=== PATIENT | male | born 1990 | race American Indian/Alaskan Native ===

== ENCOUNTER 2021-07-20 22:27 | Emergency (ER) | payer OTHER ==
[~2021-07-20] VITALS: Ht 180.3 cm; Wt 79.4 kg
[2021-07-21] MEDS ORDERED: ZITHROMAX500 MG PO (03:43)
[2021-07-21] MEDS ORDERED: DOLOGESIC-DF 51 EACH PO (03:43)
[2021-07-21] MEDS ORDERED: PEPCID40 MG PO (03:44)
[2021-07-21] MEDS ORDERED: ZOFRAN8 MG PO (03:44)
== END 2021-07-21 04:06 ==
LOC: ER 22:27
DX: K52.89 Other specified noninfective gastroenteritis and colitis (principal); R11.2 Nausea with vomiting, unspecified; Z20.822 Contact with and (suspected) exposure to COVID-19